=== PATIENT | male | born 1995 | race Caucasian/White ===

== ENCOUNTER 2022-11-02 19:33 | Emergency (ER) | payer BC, OTHER ==
[2022-11-02] MEDS ORDERED: Prochlorperazine 10 MG/2 ML VIAL ONE (21:00)
== END 2022-11-02 22:10 | disposition home or self-care (01) ==
LOC: CSHERS 19:33
DX: G43.909 Migraine, unspecified, not intractable, without status migrainosus (principal); Z20.822 Contact with and (suspected) exposure to COVID-19
CPT/HCPCS: 87804; 96361; 96374; J0780; U0003; U0005